=== PATIENT | male | born 1990 | race Caucasian/White ===

== ENCOUNTER 2022-07-25 11:44 | Emergency (ER) | payer OTHER ==
[2022-07-25 12:38] VITALS: BP 146/90; PULSE 79; RESP 18; TEMP 98.1; BMI 32.5
[2022-07-25] MEDS ORDERED: METHOCARBAMOL 500 MG TABLET PO ONE (13:23)
[2022-07-25] MEDS ORDERED: KETOROLAC TROMETHAMINE 30 MG/1 ML VIAL IM ONE (13:23)
[2022-07-25] MEDS ORDERED: METHOCARBAMOL 500 MG TABLET ONE (13:25)
[2022-07-25] MEDS ORDERED: KETOROLAC TROMETHAMINE 30 MG/1 ML VIAL ONE (13:25)
== END 2022-07-25 13:35 | disposition home or self-care (01) ==
LOC: JERFT 11:44 → JER 11:44 → JERFT 13:35
PROC: 3E0233Z Introduction of Anti-inflammatory into Muscle, Percutaneous Approach (ICD-10-PCS; principal; 2022-07-25)
DX: M54.2 Cervicalgia (principal); V87.7XXA Person injured in collision between other specified motor vehicles (traffic), initial encounter; Y92.9 Unspecified place or not applicable
CPT/HCPCS: 99283-25